=== PATIENT | female | born 1970 | race American Indian/Alaskan Native ===

== ENCOUNTER 2017-02-05 01:01 | Emergency (ER) | payer MEDICAID ==
[~2017-02-05] VITALS: Ht 162.6 cm; Wt 93.8 kg
[2017-02-05 01:03] VITALS: BP 130/83
[2017-02-05] MEDS ORDERED: LIDOCAINE 1%, 20ML SQ ONE (01:30)
[2017-02-05] MEDS ORDERED: ONDANSETRON ODT 4 MG PO ONE (01:30)
[2017-02-05] MEDS ORDERED: HYDROcodone/APAP 5/325 TABLET PO ONE ×2 (01:30→03:00)
[2017-02-05] MEDS ORDERED: LIDOCAINE 1%, 20ML ONE (01:32)
[2017-02-05] MEDS ORDERED: HYDROcodone/APAP 5/325 TABLET ONE ×2 (01:32→02:41)
[2017-02-05] MEDS ORDERED: ONDANSETRON ODT 4 MG ONE (01:32)
[2017-02-05 01:59] LABS: BLOOD UREA NITROGEN 19 mg/dL (7-18)
== END 2017-02-05 02:47 | disposition home or self-care (01) ==
LOC: ED 02:31
DX: L02.416 Cutaneous abscess of left lower limb (principal)
CPT/HCPCS: 10060; 36415; 80048; 82040; 99284; Q0162

== ENCOUNTER 2019-09-15 22:33 | Emergency (ER) | payer MEDICAID ==
[~2019-09-15] VITALS: Ht 160 cm; Wt 100.7 kg
--- NOTE | 2019-09-15 22:51 | NUR ---
PT MULTIPLE C/O INCLUDING LOW BACK PAIN, COUGH, DYSURIA, NAUSEA, CRAMPING FOR X1 MONTH. PT REPORTS INCREASED BACK PAIN TONIGHT. PT CONENCTED TO MONITORING, CALL LIGHT WTIHIN REACH, ALL SAFETY MEASURES IN PLACE.
[2019-09-15] MEDS ORDERED: BENZONATATE 100 MG CAPSULE PO ONE (23:30)
[2019-09-15] MEDS ORDERED: AZITHROMYCIN 500 MG TABLET PO ONE (23:30)
[2019-09-15] MEDS ORDERED: ALBUTEROL/IPRATROPIUM 2.5MG/0.5MG, 3 ML NPPB ONE (23:30)
[2019-09-15] MEDS ORDERED: AZITHROMYCIN 500 MG TABLET ONE (23:33)
[2019-09-15] MEDS ORDERED: BENZONATATE 100 MG CAPSULE ONE (23:33)
[2019-09-15] MEDS ORDERED: CYCLOBENZAPRINE 10 MG TABLET PO STA (23:51)
[2019-09-16] MEDS ORDERED: CYCLOBENZAPRINE 10 MG TABLET ONE (00:21)
[2019-09-16] MEDS ORDERED: ONDANSETRON ODT 4 MG ONE (00:41)
[2019-09-16] MEDS ORDERED: OXYcodone/APAP 5/325MG TABLET ONE (00:42)
[2019-09-16 00:48] VITALS: BP 112/94
[2019-09-16] MEDS ORDERED: ONDANSETRON ODT 4 MG PO ONE (01:00)
[2019-09-16] MEDS ORDERED: OXYcodone/APAP 5/325MG TABLET PO ONE (01:00)
== END 2019-09-16 00:56 | disposition home or self-care (01) ==
LOC: ED 09-16 00:20
DX: J15.9 Unspecified bacterial pneumonia (principal); R51 Headache; M79.10 Myalgia, unspecified site
CPT/HCPCS: 71046; 94640; 99284; J7620